=== PATIENT | female | born 1965 | race Caucasian/White ===

== ENCOUNTER 2022-02-07 13:05 | Outpatient (CLI) | payer BC, SELFPAY ==
[2022-02-07 22:23] LABS: Albumin* 4.7 g/dL (3.3-5.0); Chloride* 102 mmol/L (96-114); Potassium* 5.2 mmol/L (3.6-5.1); Sodium* 137 mmol/L (135-149)
[2022-02-07 22:25] LABS: Cholesterol* 176 mg/dL (90-199)
[2022-02-07 22:26] LABS: Alanine Aminotransferase* 26 U/L (4-35); Alkaline Phosphatase* 81 U/L (40-150); Aspartate Amino Transferase* 31 U/L (12-35); Bilirubin Total* 0.8 mg/dL (0.1-1.5); Blood Urea Nitrogen* 11 mg/dL (7-30); Calcium* 10.1 mg/dL (8.4-10.6); Carbon Dioxide* 28 mmol/L (20-32); Creatinine* 0.7 mg/dL (0.5-1.5); Estimated Glomerular Filt Rate 100 ml/min; Glucose* 95 mg/dL (60-115); Total Protein* 7.2 g/dL (6.0-8.3); Triglycerides* 76 mg/dL (40-149)
[2022-02-07 22:27] LABS: HDL Cholesterol* 69 mg/dL (>=50); LDL Cholesterol Calculated 92 mg/dL (<100)
== END 2022-02-07 13:06 | disposition home or self-care (01) ==
PROVIDERS: Visit Provider Physician Assistant Medical
DX: Z01.419 Encounter for gynecological examination (general) (routine) without abnormal findings (principal); D68.51 Activated protein C resistance; R03.0 Elevated blood-pressure reading, without diagnosis of hypertension; Z13.6 Encounter for screening for cardiovascular disorders; Z13.29 Encounter for screening for other suspected endocrine disorder
CPT/HCPCS: 80053; 80061; 84443

== ENCOUNTER 2022-02-28 09:58 | Outpatient (CLI) | payer BC, SELFPAY | END 2022-02-28 09:59 | disposition home or self-care (01) | PROVIDERS: PCP Physician Assistant Medical; Visit Provider Surgery | DX: Z12.11 Encounter for screening for malignant neoplasm of colon (principal); K64.4 Residual hemorrhoidal skin tags; K63.5 Polyp of colon | CPT/HCPCS: 45385; 88305; 99153; J1200; J2250; J3010 ==

== ENCOUNTER 2022-09-20 13:54 | Outpatient (CLI) | payer BC, SELFPAY ==
--- NOTE | 2022-09-20 14:00 | CRLHL7_ITS ---
For Patients: As a result of the Century Cures Act, medical imaging exams and procedure reports are released immediately into your electronic medical record. You may view this report before your referring provider. If you have questions, please contact your health care provider. INDICATION: Lung cancer screening. History of smoking. High risk patient with greater than 20 pack-year smoking history. TECHNIQUE: Low-dose lung cancer screening non-contrast CT chest. Dose reduction techniques were used. COMPARISON: None. FINDINGS: NODULES: 2 mm perifissural left upper lobe pulmonary nodule (series 2, image 52). Benign calcified 5 mm left lower lobe granuloma. LUNGS AND PLEURA: No focal airspace opacities or pleural effusions MEDIASTINUM: Calcified left hilar lymph nodes. CORONARY ARTERY CALCIFICATION: No discrete calcifications are visualized. LIMITED UPPER ABDOMEN: No acute findings. MUSCULOSKELETAL: Degenerative changes in the spine. IMPRESSION: 1. 2 mm left upper lobe pulmonary nodule. LUNG-RADS CATEGORY: 2: Benign. RADIOLOGIST RECOMMENDATION: Continue annual screening with low-dose CT chest in 12 months. Please note that all CT scans at this facility use dose modulation, iterative reconstruction, and/or weight-based dosing when appropriate to reduce radiation dose to as low as reasonably achievable. Dictated by Sarabjit Musa MD @ 09/22/2022 2:20:03 PM (Electronically Signed)
== END 2022-09-20 13:55 | disposition home or self-care (01) ==
LOC: CT 13:55
PROVIDERS: PCP Physician Assistant Medical; Visit Provider Physician Assistant Medical
DX: Z12.2 Encounter for screening for malignant neoplasm of respiratory organs (principal); R91.8 Other nonspecific abnormal finding of lung field; Z87.891 Personal history of nicotine dependence
CPT/HCPCS: 71271

== ENCOUNTER 2022-11-06 10:59 | Outpatient (CLI) | payer BC, SELFPAY | END 2022-11-06 11:00 | disposition home or self-care (01) | LOC: NFLDREF 11-15 08:29 | PROVIDERS: PCP Physician Assistant Medical; Referring Provider Physician Assistant Medical; Visit Provider Physician Assistant Medical | DX: E87.1 Hypo-osmolality and hyponatremia (principal) | CPT/HCPCS: 80048; 83930 ==

== ENCOUNTER 2023-09-24 14:54 | Outpatient (CLI) | payer BC, SELFPAY ==
--- NOTE | 2023-09-24 15:00 | CRLHL7_ITS ---
For Patients: As a result of the Century Cures Act, medical imaging exams and procedure reports are released immediately into your electronic medical record. You may view this report before your referring provider. If you have questions, please contact your health care provider. Indication: Tobacco use, 40 year pack history, lung cancer screening Technique: Noncontrast low-dose CT of the chest with multiplanar reformats. Comparison: CT chest performed 09/20/2022 Findings: Lungs: No consolidation. No effusion. No pneumothorax. Few scattered pulmonary nodules measure up to 2 millimeters, unchanged, with no new or enlarging nodules appreciated. Mediastinum: Trace pericardial fluid. Lymph nodes: Calcified nodes. Upper abdomen: No acute abnormality appreciated. Soft tissues: Calcified granulomata. Bones: No acute abnormality appreciated. Mild degenerative changes. Impression: No new or enlarging nodules are appreciated. Recommend continued annual surveillance screening (Lung-RADS 2). Please note that all CT scans at this facility use dose modulation, iterative reconstruction, and/or weight-based dosing when appropriate to reduce radiation dose to as low as reasonably achievable. Dictated by Hakan Lopez MD @ 09/28/2023 8:54:50 PM (Electronically Signed)
== END 2023-09-24 14:55 | disposition home or self-care (01) ==
LOC: CT 14:54
PROVIDERS: PCP Physician Assistant Medical; Visit Provider Physician Assistant Medical
DX: Z12.2 Encounter for screening for malignant neoplasm of respiratory organs (principal); Z72.0 Tobacco use
CPT/HCPCS: 71271

== ENCOUNTER 2024-11-01 17:48 | Outpatient (CLI) | payer OTHER, SELFPAY | END 2024-11-01 17:49 | disposition home or self-care (01) | PROVIDERS: PCP Physician Assistant Medical; Visit Provider Physician Assistant Medical | DX: E78.5 Hyperlipidemia, unspecified (principal); E87.1 Hypo-osmolality and hyponatremia; E66.9 Obesity, unspecified; I10 Essential (primary) hypertension | CPT/HCPCS: 80048; 82043; 82570; 87086 ==

== ENCOUNTER 2024-12-10 14:05 | Outpatient (CLI) | payer OTHER, SELFPAY | END 2024-12-10 14:06 | disposition home or self-care (01) | PROVIDERS: PCP Physician Assistant Medical; Visit Provider Physician Assistant Medical | DX: I10 Essential (primary) hypertension (principal); E87.1 Hypo-osmolality and hyponatremia; E66.9 Obesity, unspecified; Z68.34 Body mass index [BMI] 34.0-34.9, adult | CPT/HCPCS: 80053; 82607; 84443 ==